=== PATIENT | female | born 1960 | race Caucasian/White ===

== ENCOUNTER 2020-06-15 16:51 | Observation (INO) ==
[2020-06-15] MEDS ORDERED: THIAMINE INJ 100 MG, FOLIC ACID INJ 1 MG, MAGNESIUM SULF INJ 2 GM, MULTIVITAMIN INJ 10 ... IV ONE (17:20)
[2020-06-15] MEDS ORDERED: SODIUM CHLORIDE 0.9% 1,000 ML IV STA (17:20)
[2020-06-15 18:05] LABS: Basophils % 0.6 % (0.0-0.8); Eosinophils % 0.1 % (0.00-10.9); Hematocrit 39.5 VOL% (35.7-47.0); Hemoglobin 13.3 GM/DL (12.0-16.0); Immature Granulocytes % 0.4 %; Immature Granulocytes Absolute 0.03 #; Lymphocytes # 0.6 10*3/uL (1.4-4.0); Lymphocytes % 8.6 % (21.3-54.2); Mean Corpuscular HGB Conc 33.7 GM/DL (32-36); Mean Corpuscular Volume 101.5 FL (87-102); Mean Platelet Volume 9.3 FL (9.6-12.0); Monocytes % 8.2 % (1.7-12.7); Neutrophils % 82.1 % (38.7-73.9); Platelet Count 155 T/CUMM (130-400); Red Blood Count 3.89 MC/CUMM (3.8-5.5); Red Cell Distribution Width 14.6 % (9.3-17.3)
[2020-06-15 18:14] LABS: INR 1.1; PT Patient Result 11.7 SECS (9.8-11.9)
[2020-06-15 18:40] LABS: Bilirubin,Urine Negative (Negative); Blood, Urine Negative (Negative); Glucose,Urine (UA) Negative (Negative); Ketones,Urine Negative (Negative); Mucus,Urine Occasional /LPF (Occasional); Nitrite,Urine Negative (Negative); Protein,Urine 30 MG/DL; Squamous Epithelial Cell,Urine Few /HPF (0-10); Urine Appearance CLOUDY (Clear); Urine Color Amber (Yellow); Urine Specific Gravity 1.016 (1.001-1.035); WBC,Urine 14 /HPF (0-6)
[2020-06-15] MEDS ORDERED: VANCOMYCIN INJ 1,000 MG in SODIUM CHLORIDE 0.9% 250 ML IV STA (18:41)
[2020-06-15] MEDS ORDERED: PIPERACILLIN/TAZOBACTAM 3,375 MG in SODIUM CHLORIDE 0.9% 100 ML IV STA (18:41)
[2020-06-15 18:43] LABS: Barbiturates Screen,Urine Negative (Negative); Benzodiazepines Screen,Urine Negative (Negative); Cannabinoid Screen,Urine Negative (Negative); Opiate Screen,Urine Negative (Negative); Phencyclidine Screen,Urine Negative (Negative)
[2020-06-15 19:16] LABS: Troponin I < 0.015 NG/ML (0.00-0.045)
[2020-06-15 19:35] LABS: Albumin 3.1 G/DL (3.4-5.0); Bilirubin,Total 0.4 MG/DL (0.2-1.0); Calcium 7.9 MG/DL (8.5-10.1); Potassium 3.8 MMOL/L (3.5-5.1); Total Protein 7.6 G/DL (6.4-8.2)
[2020-06-15] MEDS ORDERED: LORazepam 2 MG/1 ML VIAL IV STA (20:36)
[2020-06-15] MEDS ORDERED: LORazepam 2 MG/1 ML VIAL ONE (20:38)
[2020-06-15] MEDS ORDERED: DEXTROSE 50% 25 GM/50 ML VIAL IV PRN (23:16)
[2020-06-15] MEDS ORDERED: ONDANSETRON 4 MG/2 ML VIAL IV PRN (23:16)
[2020-06-15] MEDS ORDERED: GLUCAGON 1 MG VIAL IM PRN (23:16)
[2020-06-15] MEDS ORDERED: DOCUSATE SODIUM 100 MG CAPSULE PO PRN (23:16)
[2020-06-15] MEDS ORDERED: ACETAMINOPHEN 325 MG TABLET PO PRN (23:16)
[2020-06-15] MEDS ORDERED: HydrOXYzine PAMOATE 50 MG CAPSULE PO PRN (23:29)
[2020-06-15] MEDS ORDERED: DICYCLOMINE 10 MG CAPSULE PO PRN (23:29)
[2020-06-15] MEDS ORDERED: LORazepam 2 MG/1 ML VIAL IV PRN (23:31)
[2020-06-15] MEDS ORDERED: traZODone 50 MG TABLET PO PRN (23:31)
[2020-06-15] MEDS: LORazepam 2 MG/1 ML VIAL IV PRN (23:57)
[2020-06-16] MEDS: LORazepam 1 MG TABLET PO SCH ×3 (01:16→12:28)
[2020-06-16] MEDS: SODIUM CHLORIDE 0.9% 1,000 ML IV SCH ×2 (01:29→12:27)
[2020-06-16] MEDS: HYDROmorphone 2 MG/1 ML VIAL IV PRN ×5 (01:30→22:29)
[2020-06-16] MEDS ORDERED: PIPERACILLIN/TAZOBACTAM 3,375 MG in SODIUM CHLORIDE 0.9% 100 ML IV SCH (04:00)
[2020-06-16 05:36] LABS: Basophils # 0.1 10*3/uL (0.0-0.2); Basophils % 0.7 % (0.0-0.8); Hemoglobin 12.2 GM/DL (12.0-16.0); Immature Granulocytes % 0.5 %; Immature Granulocytes Absolute 0.05 #; Lymphocytes # 0.6 10*3/uL (1.4-4.0); Lymphocytes % 6.9 % (21.3-54.2); Mean Corpuscular HGB Conc 33.9 GM/DL (32-36); Monocytes % 9.9 % (1.7-12.7); Platelet Count 156 T/CUMM (130-400); Red Blood Count 3.53 MC/CUMM (3.8-5.5); Red Cell Distribution Width 14.6 % (9.3-17.3); White Blood Count 9.1 T/CUMM (4-12)
[2020-06-16 05:56] LABS: Osmolality,Calculated 278.4 MOS/KG (273-304); Potassium 3.1 MMOL/L (3.5-5.1)
[2020-06-16] MEDS ORDERED: POTASSIUM CHLORIDE 20 MEQ TABLET PO PRN (07:57)
[2020-06-16] MEDS ORDERED: VANCOMYCIN INJ 1,000 MG in SODIUM CHLORIDE 0.9% 250 ML IV SCH (10:00)
[2020-06-16] MEDS: THIAMINE 100 MG TABLET PO SCH (10:30)
[2020-06-16] MEDS: chlordiazePOXIDE 10 MG CAPSULE PO SCH ×3 (10:31→20:27)
[2020-06-16] MEDS: MULTIVITAMIN (CENTRUM) TABLET PO SCH (10:31)
[2020-06-16] MEDS: FOLIC ACID 1 MG TABLET PO SCH (10:31)
[2020-06-16] MEDS: amLODIPine 5 MG TABLET PO SCH (10:31)
[2020-06-16] MEDS: PARoxetine 20 MG TABLET PO SCH (10:58)
[2020-06-16] MEDS: LORazepam 2 MG/1 ML VIAL IV PRN ×2 (15:07→22:29)
[2020-06-16] MEDS: POTASSIUM CHLORIDE RIDER 10 MEQ in PREMIX 1 EACH IV PRN ×2 (20:28→22:29)
[2020-06-17] MEDS: SODIUM CHLORIDE 0.9% 1,000 ML IV SCH ×4 (00:42→20:09)
[2020-06-17] MEDS: POTASSIUM CHLORIDE RIDER 10 MEQ in PREMIX 1 EACH IV PRN ×2 (00:43→06:12)
[2020-06-17] MEDS: LORazepam 2 MG/1 ML VIAL IV PRN ×3 (04:29→21:38)
[2020-06-17] MEDS: HYDROmorphone 2 MG/1 ML VIAL IV PRN ×3 (04:30→19:43)
[2020-06-17 04:59] LABS: Basophils % 0.2 % (0.0-0.8); Eosinophils % 0.1 % (0.00-10.9); Hematocrit 38.7 VOL% (35.7-47.0); Immature Granulocytes % 0.5 %; Immature Granulocytes Absolute 0.04 #; Lymphocytes # 0.4 10*3/uL (1.4-4.0); Mean Corpuscular HGB Conc 33.6 GM/DL (32-36); Mean Corpuscular Volume 103.2 FL (87-102); Mean Platelet Volume 10.4 FL (9.6-12.0); Neutrophils % 87.2 % (38.7-73.9); Platelet Count 139 T/CUMM (130-400); Red Blood Count 3.75 MC/CUMM (3.8-5.5); Red Cell Distribution Width 14.5 % (9.3-17.3); White Blood Count 8.6 T/CUMM (4-12)
[2020-06-17 05:25] LABS: Calcium 8.9 MG/DL (8.5-10.1); Potassium 2.9 MMOL/L (3.5-5.1)
[2020-06-17 05:36] LABS: Platelet Estimate Normal; Polychromasia Slight
[2020-06-17 05:37] LABS: Macrocytosis Slight
[2020-06-17 05:38] LABS: Tear Drop Cells Few
[2020-06-17] MEDS ORDERED: POTASSIUM CHLORIDE 20 MEQ TABLET PO ONE (07:48)
[2020-06-17] MEDS ORDERED: MAGNESIUM OXIDE 400 MG TABLET PO ONE (07:48)
[2020-06-17] MEDS ORDERED: SODIUM CHLORIDE 0.9% 1,000 ML IV ONE (07:50)
[2020-06-17] MEDS: MULTIVITAMIN (CENTRUM) TABLET PO SCH (08:54)
[2020-06-17] MEDS: FOLIC ACID 1 MG TABLET PO SCH (08:54)
[2020-06-17] MEDS: THIAMINE 100 MG TABLET PO SCH (08:54)
[2020-06-17] MEDS: PARoxetine 20 MG TABLET PO SCH (08:55)
[2020-06-17] MEDS: amLODIPine 5 MG TABLET PO SCH (08:56)
[2020-06-17] MEDS: chlordiazePOXIDE 10 MG CAPSULE PO SCH ×3 (11:16→21:37)
[2020-06-18] MEDS: HYDROmorphone 2 MG/1 ML VIAL IV PRN ×3 (01:07→21:06)
[2020-06-18] MEDS: SODIUM CHLORIDE 0.9% 1,000 ML IV SCH ×4 (01:13→23:59)
[2020-06-18] MEDS: LORazepam 2 MG/1 ML VIAL IV PRN ×4 (02:00→21:05)
[2020-06-18 06:44] LABS: Calcium 8.5 MG/DL (8.5-10.1); Osmolality,Calculated 273.7 MOS/KG (273-304)
[2020-06-18 06:45] LABS: Potassium 2.4 MMOL/L (3.5-5.1)
[2020-06-18] MEDS ORDERED: MAGNESIUM SULF RIDER 2 GM in PREMIX 1 EACH IV PRN (08:10)
[2020-06-18] MEDS ORDERED: MAGNESIUM SULF RIDER 4 GM in PREMIX 1 EACH IV PRN (08:10)
[2020-06-18] MEDS: FOLIC ACID 1 MG TABLET PO SCH (08:43)
[2020-06-18] MEDS: MAGNESIUM OXIDE 400 MG TABLET PO SCH ×2 (08:44→12:27)
[2020-06-18] MEDS: POTASSIUM CHLORIDE 20 MEQ TABLET PO SCH ×3 (08:44→16:40)
[2020-06-18] MEDS: MULTIVITAMIN (CENTRUM) TABLET PO SCH (08:44)
[2020-06-18] MEDS: THIAMINE 100 MG TABLET PO SCH (08:44)
[2020-06-18] MEDS: chlordiazePOXIDE 10 MG CAPSULE PO SCH ×3 (08:44→21:08)
[2020-06-18] MEDS: PARoxetine 20 MG TABLET PO SCH (08:44)
[2020-06-18] MEDS: amLODIPine 5 MG TABLET PO SCH (08:44)
[2020-06-18] MEDS: POTASSIUM CHLORIDE RIDER 10 MEQ in PREMIX 1 EACH IV PRN ×2 (08:45→09:47)
[2020-06-18] MEDS: METHOCARBAMOL 750 MG TABLET PO PRN ×2 (10:14→17:50)
[2020-06-18] MEDS ORDERED: POTASSIUM CHLORIDE INJ 40 MEQ in SODIUM CHLORIDE 0.9% 500 ML IV SCH (12:00)
[2020-06-18] MEDS ORDERED: NEOMYCIN/POLYMYXIN/BACITRACIN OINT 0.9 GM PACK TOP SCH (13:00)
[2020-06-18] MEDS: CLINDAMYCIN 300 MG CAPSULE PO SCH ×2 (15:22→21:08)
[2020-06-19] MEDS: HYDROmorphone 2 MG/1 ML VIAL IV PRN ×2 (01:07→05:07)
[2020-06-19] MEDS: CLINDAMYCIN 300 MG CAPSULE PO SCH (05:07)
[2020-06-19 06:03] LABS: Calcium 8.6 MG/DL (8.5-10.1); Osmolality,Calculated 276.4 MOS/KG (273-304); Potassium 3.5 MMOL/L (3.5-5.1)
[2020-06-19 08:00] VITALS: BP 133/81
[2020-06-19] MEDS: chlordiazePOXIDE 10 MG CAPSULE PO SCH (09:27)
[2020-06-19] MEDS: FOLIC ACID 1 MG TABLET PO SCH (09:27)
[2020-06-19] MEDS: THIAMINE 100 MG TABLET PO SCH (09:27)
[2020-06-19] MEDS: amLODIPine 5 MG TABLET PO SCH (09:27)
[2020-06-19] MEDS: METHOCARBAMOL 750 MG TABLET PO PRN (09:27)
[2020-06-19] MEDS: MULTIVITAMIN (CENTRUM) TABLET PO SCH (09:27)
[2020-06-19] MEDS: PARoxetine 20 MG TABLET PO SCH (09:28)
== END 2020-06-19 10:10 ==
LOC: EDUNIT# → EDBD → N.EDINP 16:51 → N.ED 16:51 → SUATTDRO 20:14 → N.4E 20:47
PROVIDERS: ADMIT Internal Medicine; ATTEND Hospitalist